=== PATIENT | female | born 1935 | race Caucasian/White ===

== ENCOUNTER 2017-03-18 11:03 | Inpatient (IN) | payer MEDICARE, MEDICAID ==
[2017-03-18] MEDS ORDERED: HYDROmorphone 1 MG/ML Syringe IVPUSH PRN (11:33)
[2017-03-18] MEDS ORDERED: Ondansetron 4 MG/2 ML SDV IV PRN (11:33)
[2017-03-18] MEDS ORDERED: Acetaminophen 325 MG Tab PO PRN ×2 (11:33→13:16)
[2017-03-18] MEDS ORDERED: guaiFENesin 100 MG/5 ML Soln 10 ML UD Cup PO PRN ×2 (13:16→13:58)
[2017-03-18] MEDS ORDERED: Bisacodyl 5 MG Tab PO PRN (13:16)
[2017-03-18] MEDS ORDERED: Non-Formulary Medication 1 Each (Nystatin [Nystatin] 1 EACH) TOP PRN (13:16)
[2017-03-18] MEDS ORDERED: traMADol 50 MG Tab PO PRN (13:16)
[2017-03-18 13:37] LABS: CHLORIDE,CL 100 mmol/L (98-107); SODIUM,NA 141 mmol/L (136-145)
[2017-03-18] MEDS ORDERED: guaiFENesin/Dextromethorphan 100-10 MG/5 ML Soln 10 ML Cup PO PRN (14:38)
[2017-03-18] MEDS: Enoxaparin 40 MG/0.4 ML Syringe SUBCUT SCH (15:09)
[2017-03-18] MEDS ORDERED: Sodium Chloride 0.9% 100 ML IV ONE (15:31)
[2017-03-18] MEDS ORDERED: Iopamidol 612 MG/ML 100 ML Bottle IVPUSH ONE (15:31)
[2017-03-18] MEDS ORDERED: Miconazole 2% Top Powder 45 GM Container TOP PRN (16:01)
[2017-03-18] MEDS ORDERED: metFORMIN 500 MG Tab PO SCH (18:00)
[2017-03-18] MEDS: Simvastatin 40 MG Tab PO SCH (20:11)
[2017-03-18] MEDS: Sodium Chloride 0.9% 10 ML Syringe FLUSH PRN (20:12)
[2017-03-18] MEDS: Cranberry 500 MG Cap PO SCH (20:12)
[2017-03-18] MEDS: cefTRIAXone 1 GM Vial IVPUSH SCH (20:12)
[2017-03-18] MEDS: Azithromycin 500 MG in Sodium Chloride 0.9% 250 ML IV SCH (20:19)
[2017-03-18] MEDS ORDERED: Albuterol/Ipratropium 3.0-0.5 MG/3 ML Neb Soln NEB ONE (23:55)
[2017-03-19] MEDS ORDERED: methylPREDNISolone Sodium Succinate 125 MG/2 ML SDV IVPUSH ONE (00:19)
[2017-03-19] MEDS: Albuterol/Ipratropium 3.0-0.5 MG/3 ML Neb Soln NEB PRN ×4 (00:39→14:42)
[2017-03-19] MEDS: Simvastatin 40 MG Tab PO SCH ×2 (00:40→20:03)
[2017-03-19] MEDS: Cranberry 500 MG Cap PO SCH ×2 (00:40→07:56)
[2017-03-19] MEDS: Sodium Chloride 0.9% 10 ML Syringe FLUSH PRN (00:44)
[2017-03-19] MEDS: Insulin Detemir 100 Units/ML 3 ML Pen SUBCUT SCH (07:54)
[2017-03-19] MEDS: Enoxaparin 40 MG/0.4 ML Syringe SUBCUT SCH (07:54)
[2017-03-19] MEDS: Hydrochlorothiazide 25 MG Tab PO SCH (07:55)
[2017-03-19] MEDS: Losartan 50 MG Tab PO SCH (07:55)
[2017-03-19] MEDS: Polyethylene Glycol 3350 Powder 17 GM Packet PO SCH (07:57)
[2017-03-19] MEDS ORDERED: Multivitamins with Iron/Calcium/Folic Acid/Minerals Tab PO SCH (08:00)
[2017-03-19] MEDS ORDERED: Loratadine 10 MG Tab PO SCH (08:00)
[2017-03-19] MEDS ORDERED: Alendronate 70 MG Tab PO SCH (08:00)
[2017-03-19] MEDS ORDERED: Magnesium Sulfate/Water 2 GM in Premix Bag 1 BAG IV ONE (08:12)
[2017-03-19] MEDS: Lactated Ringers 1,000 ML IV SCH ×2 (08:45→18:50)
--- NOTE | 2017-03-19 11:20 | PCM.PN ---
- General Info Date of Service: 03/19/17 Admission Dx/Problem (Free Text): Subjective: Patient was admit yesterday with cough and hypoxia. Afebrile. Chest x-ray wasn't too revealing. We did a CT given her recent hospitalization rule out any PE and to define any pneumonitis present. She does have some patchy basal tree in bud infiltrates, I suspect these represent inflammatory changes from intermittent mucus plugging and aspiration. No PE was seen. Her esophagus is moderately dilated filled with mixed food and fluid debris. There was tapering at the GE junction concerning for malignancy versus stricture or achalasia. Not tolerating much for orals here, she will spit mucus back up. She's probably tolerating a small amount of liquids. She remains afebrile and her vital signs are normal other than some oxygen requirement. Last evening she did require nonrebreather mask for a while and now has returned again the nasal cannula at 4 L. Objectively she is sitting up in bed she is smiling she is not grossly dyspneic she has no acute complaints she has c-collar in place. Lungs reveal some bibasilar crackles abdomen soft nontender extremity is warm well perfused. I count is up to 26,000 and make a bit low at 1.5 potassium and chemistry otherwise okay sugar running a bit high at 280. She did receive Solu-Medrol dose last night along with DuoNeb. Assessment and plan: Pneumonitis with hypoxia. This appears to be secondary to aspiration and some mucus plugging. Exact infectious nature of this is unclear. Continue Rocephin plus Zithromax for now. The main concern is preventing her recurrent aspiration. There is also concern about whether she can be able to maintain oral intake given the dilated esophagus with distal tapering. She was not on ad gillian. diet at the longterm thus I feel an acute impaction is unlikely. Chronic narrowing from achalasia stricture or malignancy would seem most likely. I reviewed case with power of trust and estates attorney, mihir Velez, would like to focus mostly on comfort cares at this time. We're to continue IV fluids LR 125cc/h see if patient will tolerate regular liquids instead of thickened. If she is unable to tolerate oral liquids then we are going to have to decide whether we would try to do a palliative EGD. I reviewed the case with GI specialist at [facility]. We reviewed the fact that she has a C-spine fracture currently requiring collar as it did not appear healed on last films one month ago. He states he would be able do it but it would be a high risk procedure, it would require intubation to prevent aspiration given there is foodstuff present in esophagus. Would probably require repeat consult per neurosurgery and films prior to procedure. I've reviewed case with Dr. Karina Vega D.O. will be taking over in the morning. - Patient Data Vitals - Most Recent: Last Vital Signs Temp 37.0 C 03/19/17 10:00 Pulse 86 03/19/17 10:00 Resp 20 03/19/17 10:00 BP 98/51 L 03/19/17 10:00 Pulse Ox 97 03/19/17 10:00 Weight - Most Recent: 61.099 kg I&O - Last 24 Hours: Intake & Output 03/18/17 03/19/17 03/19/17 22:59 06:59 14:59 Intake Total 50 120 Output Total 0 Balance 50 0 120 Lab Results Last 24 Hours: Laboratory Results - last 24 hr 03/18/17 03/18/17 03/18/17 Range/Units 12:50 12:50 13:22 WBC 13.6 H (4.0-10.0) x10^3/uL RBC 4.43 (4.00-5.50) x10^6/uL Hgb 13.1 (12.0-16.0) g/dL Hct 38.8 (33.0-47.0) % MCV 87.6 (78.0-93.0) fL MCH 29.6 (26.0-32.0) pg MCHC 33.8 (32.0-36.0) g/dL RDW Coeff of [place] 13.6 (10.0-15.0) % Plt Count 236 (130-400) x10^3/uL Neut % (Auto) 79.1 (50.0-80.0) % Lymph % (Auto) 14.5 L (25.0-50.0) % [place] % (Auto) 5.4 (2.0-11.0) % Eos % (Auto) 0.7 (0.0-4.0) % Baso % (Auto) 0.3 (0.2-1.2) % Add Manual Diff Neutrophils % (Manual) (50-80) % Lymphocytes % (Manual) (25-50) % Platelet Estimate D-Dimer, Quantitative 0.87 H (<=0.58) mg/LFEU Sodium 141 (136-145) mmol/L Potassium 3.7 (3.5-5.1) mmol/L Chloride 100 (98-107) mmol/L Carbon Dioxide 30 (21-32) mmol/L BUN 20 H (7-18) mg/dL Creatinine 0.8 (0.55-1.02) mg/dL Est Cr Clr Drug Dosing 44.36 mL/min Estimated GFR (MDRD) > 60 Glucose 158 H (74-106) mg/dL Calcium 9.8 (8.5-10.1) mg/dL Corrected Calcium 10.04 (8.5-10.1) mg/dL Magnesium 1.5 L (1.8-2.4) mg/dL Total Bilirubin 0.5 (0.2-1.0) mg/dL AST 28 (15-37) U/L ALT 33 (14-59) U/L Alkaline Phosphatase 61 (46-116) U/L Troponin I < 0.017 (<=0.056) ng/mL C-Reactive Protein 0.2 (<=0.9) mg/dL NT-Pro-B Natriuret Pep 186 (<=450) pg/mL Total Protein 7.7 (6.4-8.2) g/dL Albumin 3.7 (3.4-5.0) g/dL Globulin 4.0 Albumin/Globulin Ratio 0.93 03/19/17 03/19/17 Range/Units 06:55 06:55 WBC 24.1 H* (4.0-10.0) x10^3/uL RBC 4.20 (4.00-5.50) x10^6/uL Hgb 12.4 (12.0-16.0) g/dL Hct 37.2 (33.0-47.0) % MCV 88.6 (78.0-93.0) fL MCH 29.5 (26.0-32.0) pg MCHC 33.3 (32.0-36.0) g/dL RDW Coeff of [place] 13.6 (10.0-15.0) % Plt Count 280 (130-400) x10^3/uL Neut % (Auto) (50.0-80.0) % Lymph % (Auto) (25.0-50.0) % [place] % (Auto) (2.0-11.0) % Eos % (Auto) (0.0-4.0) % Baso % (Auto) (0.2-1.2) % Add Manual Diff Yes Neutrophils % (Manual) 98 H (50-80) % Lymphocytes % (Manual) 2 L (25-50) % Platelet Estimate Adequate D-Dimer, Quantitative (<=0.58) mg/LFEU Sodium 141 (136-145) mmol/L Potassium 3.6 (3.5-5.1) mmol/L Chloride 102 (98-107) mmol/L Carbon Dioxide 31 (21-32) mmol/L BUN 23 H (7-18) mg/dL Creatinine 1.0 (0.55-1.02) mg/dL Est Cr Clr Drug Dosing 35.49 mL/min Estimated GFR (MDRD) 53 Glucose 280 H (74-106) mg/dL Calcium 9.4 (8.5-10.1) mg/dL Corrected Calcium (8.5-10.1) mg/dL Magnesium (1.8-2.4) mg/dL Total Bilirubin (0.2-1.0) mg/dL AST (15-37) U/L ALT (14-59) U/L Alkaline Phosphatase (46-116) U/L Troponin I (<=0.056) ng/mL C-Reactive Protein (<=0.9) mg/dL NT-Pro-B Natriuret Pep (<=450) pg/mL Total Protein (6.4-8.2) g/dL Albumin (3.4-5.0) g/dL Globulin Albumin/Globulin Ratio Med Orders - Current: Current Medications Albuterol/Ipratropium (Duoneb 3.0-0.5 Mg/3 Ml) 3 ml NEB Q4H PRN PRN Reason: Shortness of Breath Last Admin: 03/19/17 10:43 Dose: 3 ml Bisacodyl (Dulcolax) 5 mg PO DAILY PRN PRN Reason: Constipation Ceftriaxone Sodium (Rocephin) 1 gm IVPUSH BEDTIME STEVO Last Admin: 03/18/17 20:12 Dose: 1 gm Enoxaparin Sodium (Lovenox) 40 mg SUBCUT DAILY [facility] Last Admin: 03/19/17 07:54 Dose: 40 mg Guaifenesin/Dextromethorphan (Robitussin Dm) 10 ml PO Q4H PRN PRN Reason: Congestion Hydrochlorothiazide (Hydrochlorothiazide) 25 mg PO DAILY [facility] Last Admin: 03/19/17 07:55 Dose: 25 mg Hydromorphone HCl (Dilaudid) 0.5 mg IVPUSH Q2H PRN PRN Reason: Pain (severe 7-10) Azithromycin 500 mg/ Sodium (Chloride) 250 mls @ 250 mls/hr IV BEDTIME [facility] Last Admin: 03/18/17 20:19 Dose: 250 mls/hr Lactated Ringer's (Ringers, Lactated) 1,000 mls @ 125 mls/hr IV ASDIRECTED [facility] Last Admin: 03/19/17 08:45 Dose: 125 mls/hr Insulin Detemir (Levemir) 20 unit SUBCUT DAILY [facility] Last Admin: 03/19/17 07:54 Dose: 20 unit Losartan Potassium (Cozaar) 50 mg PO DAILY [facility] Last Admin: 03/19/17 07:55 Dose: 50 mg Metformin HCl (Glucophage) 500 mg PO BIDMEALS [facility] Miconazole (Desenex 2%) 0 gm TOP BID PRN PRN Reason: Rash Ondansetron HCl (Zofran) 4 mg IV Q6H PRN PRN Reason: Nausea/Vomiting Polyethylene Glycol (Miralax) 17 gm PO DAILY [facility] Last Admin: 03/19/17 07:57 Dose: Not Given Senna/Docusate Sodium (Senna Plus) 2 tab PO BID [facility] Last Admin: 03/19/17 07:55 Dose: 2 tab Simvastatin (Zocor) 40 mg PO BEDTIME [facility] Last Admin: 03/19/17 00:40 Dose: Not Given Sodium Chloride (Saline Flush) 10 ml FLUSH ASDIRECTED PRN PRN Reason: Keep Vein Open Last Admin: 03/19/17 00:44 Dose: 10 ml Tramadol HCl (Ultram) 50 mg PO Q6HR PRN PRN Reason: Pain Discontinued Medications Acetaminophen (Tylenol) 650 mg PO Q4H PRN PRN Reason: Pain (Mild 1-3)/fever Albuterol/Ipratropium (Duoneb 3.0-0.5 Mg/3 Ml) 3 ml NEB ONETIME ONE Stop: 03/18/17 23:56 Last Admin: 03/19/17 01:08 Dose: Not Given Alendronate Sodium (Fosamax) 70 mg PO DAILY [facility] Alendronate Sodium (Fosamax) 70 mg PO MO@08 STEVO Cranberry (Cranberry) 500 mg PO BID [facility] Last Admin: 03/19/17 07:56 Dose: Not Given Guaifenesin (Robitussin) 2,000 mg PO Q4H PRN PRN Reason: Cough Guaifenesin (Robitussin) 20 mg PO Q4H PRN PRN Reason: Cough Sodium Chloride (Normal Saline) 100 mls @ 3 mls/sec IV ONETIME ONE Stop: 03/18/17 15:32 Last Admin: 03/18/17 19:52 Dose: Not Given Magnesium Sulfate 2 gm/ Premix 50 mls @ 25 mls/hr IV ONETIME ONE Stop: 03/19/17 10:11 Last Admin: 03/19/17 08:46 Dose: 25 mls/hr Iopamidol (Isovue-300 (61%)) 100 ml IVPUSH ONETIME ONE Stop: 03/18/17 15:32 Last Admin: 03/18/17 19:52 Dose: Not Given Loratadine (Claritin) 5 mg PO DAILY [facility] Last Admin: 03/19/17 07:55 Dose: 5 mg Methylprednisolone Sodium Succinate (Solu-Medrol) 50 mg IVPUSH ONETIME ONE Stop: 03/19/17 00:20 Last Admin: 03/19/17 00:37 Dose: 50 mg Multivitamins/Minerals (Thera M Plus) 1 tab PO DAILY [facility] Last Admin: 03/19/17 07:55 Dose: 1 tab Non-Formulary Medication (Nystatin [Nystatin]) 1 each TOP BID PRN PRN Reason: Itching Senna/Docusate Sodium (Senna Plus) 1 tab PO BID [facility] - Problem List Review Problem List Initiated/Reviewed/Updated: Yes - My Orders Last 24 Hours: My Active Orders 03/18/17 11:07 Admission Status [Patient Status] [ADT] Routine 03/18/17 11:33 Patient Status [ADT] Routine Oxygen Therapy [RC] Up With Assistance [RC] VTE/DVT Education [RC] .PRN Vital Signs [RC] 02,06,10,14,18,22 PT Evaluation and Treatment [CONS] Routine HYDROmorphone [Dilaudid] 0.5 mg IVPUSH Q2H PRN Ondansetron [Zofran] 4 mg IV Q6H PRN Sodium Chloride 0.9% [Saline Flush] 10 ml FLUSH ASDIRECTED PRN Peripheral IV Insertion Adult [OM.PC] Routine Resuscitation Status Routine 03/18/17 11:45 Enoxaparin [Lovenox] 40 mg SUBCUT DAILY 03/18/17 13:16 Bisacodyl [Dulcolax] 5 mg PO DAILY PRN traMADol [Ultram] 50 mg PO Q6HR PRN 03/18/17 14:18 Communication Order [RC] 03/18/17 14:38 Dextromethorphan/guaiFENesin [Robitussin DM] 10 ml PO Q4H PRN 03/18/17 15:00 Chest w Cont [CT] Routine 03/18/17 16:01 Miconazole [Desenex 2%] 0 gm TOP BID PRN 03/18/17 18:00 metFORMIN [Glucophage] 500 mg PO BIDMEALS 03/18/17 20:00 Azithromycin [Zithromax] 500 mg Sodium Chloride 0.9% [Normal Saline] 250 ml IV BEDTIME Docusate Sodium/Sennosides [Senna Plus] 2 tab PO BID Simvastatin [Zocor] 40 mg PO BEDTIME cefTRIAXone [Rocephin] 1 gm IVPUSH BEDTIME 03/18/17 23:55 RT Aerosol Therapy [RC] ASDIRECTED 03/19/17 00:16 Albuterol/Ipratropium [DuoNeb 3.0-0.5 MG/3 ML] 3 ml NEB Q4H PRN 03/19/17 08:00 Hydrochlorothiazide 25 mg PO DAILY Insulin Detemir [Levemir] 20 unit SUBCUT DAILY Losartan [Cozaar] 50 mg PO DAILY Polyethylene Glycol 3350 [MiraLAX] 17 gm PO DAILY 03/19/17 08:13 Cervical Spine 2V or 3V [CR] Routine 03/19/17 08:15 Lactated Ringers [Ringers, Lactated] 1,000 ml IV ASDIRECTED 03/19/17 Breakfast Thickened Liquids [DIET] 03/19/17 Lunch Clear Liquid Diet [DIET]
[2017-03-19] MEDS: cefTRIAXone 1 GM Vial IVPUSH SCH (19:55)
[2017-03-19] MEDS: Azithromycin 500 MG in Sodium Chloride 0.9% 250 ML IV SCH (19:59)
[2017-03-20] MEDS: Lactated Ringers 1,000 ML IV SCH (04:03)
[2017-03-20 07:32] LABS: CHLORIDE,CL 106 mmol/L (98-107); SODIUM,NA 144 mmol/L (136-145)
[2017-03-20] MEDS: Polyethylene Glycol 3350 Powder 17 GM Packet PO SCH (07:51)
[2017-03-20] MEDS: Insulin Detemir 100 Units/ML 3 ML Pen SUBCUT SCH (07:51)
[2017-03-20] MEDS: Enoxaparin 40 MG/0.4 ML Syringe SUBCUT SCH (07:52)
[2017-03-20] MEDS: Losartan 50 MG Tab PO SCH (07:54)
[2017-03-20] MEDS: Hydrochlorothiazide 25 MG Tab PO SCH (07:54)
[2017-03-20] MEDS ORDERED: Potassium Chloride 20 MEQ in Premix Bag 1 BAG IV ONE (08:17)
[2017-03-20] MEDS ORDERED: Potassium Chloride 10% 20 MEQ/15 ML Soln 15 ML UD Cup PO SCH (08:19)
[2017-03-20] MEDS ORDERED: Amoxicillin/Clavulanate K 600-42.9 MG/5 ML Susp 125 ML Bottle PO SCH (08:45)
[2017-03-20 09:59] VITALS: BP 107/54
--- NOTE | 2017-03-21 08:07 | DISCH ---
PRIMARY DISCHARGE DIAGNOSES: 1. Aspiration pneumonitis, probably aspiration pneumonia due to recurrent aspiration with improving white count and no fevers on discharge. 2. Recurrent aspiration. 3. Previous cervical spinal fracture in December of 2016, type III dens fracture and C1 fracture still in a cervical collar. 4. Dysphagia with CT showing food impaction in the esophagus, possibly a chronic issue. She is able to tolerate liquids, underlying causes could be stricture, achalasia, or malignancy. 5. Type 2 diabetes. Elevated blood sugars yesterday due to some steroids but blood sugar 89 today. We will stop metformin as we are stopping most oral medications and decrease Lantus to 10 units. 6. Essential hypertension. 7. Remote history of breast cancer. 8. Moderate intellectual disabilities, used to live with her sister. She has been otherwise at the [facility]. REASON FOR ADMISSION: On the date of admission, this 82-year-old female was admitted to [facility] due to increasing cough and hypoxia. Chest x-ray did not show a source; however, CT was done to rule out pulmonary embolism, which did show patchy infiltrate. Therefore, she was started on IV Rocephin and Zithromax, which she was tolerating. Her white count is improved. Her potassium and magnesium were low, and these were replaced. Prior to discharge, magnesium was 2 and her potassium was low at 3.1, but she did receive 20 mEq IV and will receive 20 oral b.i.d. for a week. Her hemoglobin did drop slightly down to 10.6, but she was receiving IV fluids, and this was felt to be due to hemodilution. There were no signs of active bleeding. I did have a discussion with her niece, Luz, as did Dr. Edgardo Coronado and they recommended not to pursue any aggressive treatments as the GI specialist did feel she would need to be intubated and sedated to have her EGD done due to aspiration risk and at this point that would fix maybe the swallowing problem, but she would possibly still be aspirating plus the cervical fracture. Her niece was agreeable that if she went back to the half-way and worsen comfort cares or hospice could be arranged. Otherwise, she was saturating well. She was down to 2 L of oxygen. She did receive 1 neb treatment when she was quite hypoxic and also those IV steroids, but she did not seem to require any further treatments. The patient was alert. She was conversing with me appropriately. She was answering questions. She was agreeable and quite happy and pleased to go back to the [facility] today. Discharge vitals include temperature of 98.6, pulse 82, blood pressure 107/54, respiratory rate 16, and O2 94 on 2 L. In general, she is in no acute distress. Her heart has regular rate and rhythm. Lung sounds show decreased air entry with rhonchi noted in both bases. Abdomen nondistended, nontender. She reports some intermittent abdominal discomfort, but she states that has been going on for a longtime. Otherwise, extremities warm and dry. No edema. Mental status, she was aware she was at the hospital. Otherwise, the patient is supposed to have swallow eval in March, however, with her neck C collar, I am not sure if they will be able to complete this. We will just have to see how she does over the next few days at the half-way. Otherwise, I did discontinue most of her oral medications especially her antihypertensive as at one point, her blood pressure was 65/46 and on discharge, she was only 107/54. We will have Dr. Calderón follow her up on half-way rounds. We will treat her with liquid Augmentin b.i.d. for another 6 days. They will send q.i.d. Accu-Cheks to me to further evaluate her blood sugars, and she will be on liquid diet as tolerated, thickened liquids for aspiration risk. It is not necessarily needed as we are just focusing on getting whatever oral intake she can at this point and to monitor her closely. If she deteriorates, I would recommend full comfort and hospice care. Discharge back to [facility]. Greater than 30 minutes spent on discharge process. FREDYA: 03/20/2017 14:06:09 MODL: 03/21/2017 05:04:28 /[id number]
[2017-03-23] MEDS ORDERED: Alendronate 70 MG Tab PO SCH (08:00)
--- NOTE | 2017-03-25 16:56 | PCM.HP ---
H&P History of Present Illness - General Date of Service: 03/18/17 Admit Problem/Dx: Subjective: Patient was admit yesterday with cough and hypoxia. Afebrile. Chest x-ray wasn't too revealing. We did a CT given her recent hospitalization rule out any PE and to define any pneumonitis present. She does have some patchy basal tree in bud infiltrates, I suspect these represent inflammatory changes from intermittent mucus plugging and aspiration. No PE was seen. Her esophagus is moderately dilated filled with mixed food and fluid debris. There was tapering at the GE junction concerning for malignancy versus stricture or achalasia. Not tolerating much for orals here, she will spit mucus back up. She's probably tolerating a small amount of liquids. She remains afebrile and her vital signs are normal other than some oxygen requirement. Last evening she did require nonrebreather mask for a while and now has returned again the nasal cannula at 4 L. Objectively she is sitting up in bed she is smiling she is not grossly dyspneic she has no acute complaints she has c-collar in place. Lungs reveal some bibasilar crackles abdomen soft nontender extremity is warm well perfused. I count is up to 26,000 and make a bit low at 1.5 potassium and chemistry otherwise okay sugar running a bit high at 280. She did receive Solu-Medrol dose last night along with DuoNeb. Assessment and plan: Pneumonitis with hypoxia. This appears to be secondary to aspiration and some mucus plugging. Exact infectious nature of this is unclear. Continue Rocephin plus Zithromax for now. The main concern is preventing her recurrent aspiration. There is also concern about whether she can be able to maintain oral intake given the dilated esophagus with distal tapering. [facility] thus I feel an acute impaction is unlikely. Chronic narrowing from achalasia stricture or malignancy would seem most likely. I reviewed case with power of bankruptcy attorney, mihir Rosie, would like to focus mostly on comfort cares at this time. We're to continue IV fluids LR 125cc/h see if patient will tolerate regular liquids instead of thickened. If she is unable to tolerate oral liquids then we are going to have to decide whether we would try to do a palliative EGD. I reviewed the case with GI specialist at [facility]. We reviewed the fact that she has a C-spine fracture currently requiring collar as it did not appear healed on last films one month ago. He states he would be able do it but it would be a high risk procedure, it would require intubation to prevent aspiration given there is foodstuff present in esophagus. Would probably require repeat consult per neurosurgery and films prior to procedure. I've reviewed case with Dr. Karina Sharma.Riya. will be taking over in the morning. Source of Information: Patient, Family, Half-Way Records, Provider - History of Present Illness Initial Comments - Free Text/Narative: Chief complaint: Hypoxia. History of present illness: [facility] is a [facility]. She cannot provide much for meaningful history. Has not given much for information from the [facility] either. Apparently she was having some low O2 sats and cough there. Afebrile. There've been concerns about chronic aspiration she's on a modified thickened liquid diet there. She was scheduled to have upper GIs study for swallow eval in a couple weeks. Because of low oxygen saturations in the clinic running mid 80s the physician's senior office support assistant sosa wanted me to see her to evaluate for admission. Recent medical history also significant for fall during which she fractured C1 and C2. This was two months ago. Has not healed yet by x-ray one month ago and family declined surgery at that time as she is cold level II and they're tending to focus more on comfort at this point in life. Past medical history: Abnormal swallowing on thickened liquid diet. Recent cervical fracture. Dementia. Chronic kidney disease. Type 2 diabetes. Moderate intellectual disability. History of MRSA. No known drug allergies. Medications Levemir, tramadol, cranberry, Aliya lax, Cozaar, hydrochlorothiazide , Fosamax. Social history: Nonsmoker, niece's basically her only family functions his power of bankruptcy attorney. Family history: Noncontributory. View of systems: Unobtainable. Physical exam. Afebrile, blood pressure and pulse are normal. She is requiring 4 L oxygen to maintain in low 90s. Norvasc trace distress. Cervical collar in place able to speak freely otherwise. Heart and lungs clear to auscultation abdomen soft nontender extremities warm well perfused. Assessment and plan: hypoxemia in patient without samy pneumonitis by chest x-ray today. We will proceed to CT. We will rule out PE given she has been partially immobilized lately after hospitalization for cervical spine fracture. This will also show us any other pneumonitis or causes present. Findings can considerantibiotics or othertreatments indicated. Start empiric prophylactic Lovenox dose in the interim. - Related Data Allergies/Adverse Reactions: Allergies Allergy/AdvReac Type Severity Reaction Status Date / Time No Known Allergies Allergy Verified 03/18/17 11:53 Home Medications: Home Meds Insulin Detemir [Levemir] 20 unit SUBCUT DAILY 03/18/17 [History] Nystatin 1 applic TOP BID PRN 03/18/17 [History] Polyethylene Glycol 3350 [Miralax] 17 gm PO DAILY 03/18/17 [History] traMADol HCl [Ultram] 50 mg PO Q6HR PRN 03/18/17 [History] Amoxicillin/Clavulanate K [Augmentin 600-42.9 MG/5 ML Susp] 600 mg PO BIDM 5 Days #1 bottle 03/20/17 [Rx] Dextromethorphan/guaiFENesin [Robitussin DM] 10 ml PO Q4H PRN #6 cup 03/20/17 [ Rx] Potassium Chloride [Potassium Chloride Solution] 20 meq PO BIDMEALS 7 Days #30 cup 03/20/17 [Rx] Past Medical History HEENT History: Reports: Other (See Below) Other HEENT History: abnormal swallowing Cardiovascular History: Reports: High Cholesterol, Hypertension Musculoskeletal History: Reports: Other (See Below) Other Musculoskeletal History: disorder of bone and cartilage. carbuncle of furncle of trunk. osteitis deformans. chronic paronychia of finger. closed fracture of vertebra-C2 fracture. fracture of nasal bone. tremor Neurological History: Reports: Other (See Below) Other Neuro History: intellectual disabilties Endocrine/Metabolic History: Reports: Diabetes, Type II Hematologic History: Reports: Anemia - Infectious Disease History Infectious Disease History: Reports: MRSA Social & Family History - Family History Family Medical History: Noncontributory - Tobacco Use Smoking Status *Q: Unknown Ever Smoked - Recreational Drug Use Recreational Drug Use: No H&P Review of Systems - Review of Systems: Review Of Systems: Unable To Obtain Exam - Exam Exam: See Below - Vital Signs Vital Signs: Last Vital Signs Temp 37.0 C 03/20/17 09:56 Pulse 82 03/20/17 09:56 Resp 16 03/20/17 09:56 BP 107/54 L 03/20/17 09:56 Pulse Ox 94 L 03/20/17 09:56 Weight: 61.099 kg - Patient Data Result Diagrams: 03/20/17 07:09 03/20/17 07:09 *Q Meaningful Use (ADM) - VTE *Q VTE Criteria *Q: - Stroke *Q Stroke Criteria *Q: - AMI *Q AMI Criteria *Q: Problem List Initiated/Reviewed/Updated: Yes
== END 2017-03-20 12:00 | DRG 179 ==
LOC: VM.MS 11:03
PROVIDERS: ADMIT Family Medicine; ATTEND Family Medicine
DX: J69.0 Pneumonitis due to inhalation of food and vomit (principal); R13.10 Dysphagia, unspecified; I10 Essential (primary) hypertension; Z85.3 Personal history of malignant neoplasm of breast; F71 Moderate intellectual disabilities; R09.02 Hypoxemia; Z79.4 Long term (current) use of insulin; Z79.84 Long term (current) use of oral hypoglycemic drugs; Z79.899 Other long term (current) drug therapy; E11.65 Type 2 diabetes mellitus with hyperglycemia; T38.0X5A Adverse effect of glucocorticoids and synthetic analogues, initial encounter
CPT/HCPCS: 36415; 71260; 72040; 80048; 80053; 83735; 83880; 84484; 85025; 85379; 86140; 93005; 94640-76; 94760; A9270-GY; J0456; J0696; J1650; J1815-GY; J2930; J3475; J3480; J7050; J7120